=== PATIENT | male | born 1945 | race Caucasian/White ===

== ENCOUNTER → 2022-01-20 10:52 | Outpatient (CLI) | payer OTHER, SELFPAY ==
--- NOTE | ~2022-01-20 | MR_ITS ---
EXAMINATION: MR shoulder LT wo con DATE: 01/20/2022 11:33 INDICATION: Left shoulder pain post fall 2 months prior. TECHNIQUE: Magnetic resonance imaging (MRI) of the left shoulder was performed without intravenous co ntrast. Sequences included axial PD-weighted FS FSE, coronal oblique PD-weighted FS FSE, coronal obli que T2-weighted FS FSE, sagittal PD-weighted FS FSE, and sagittal T1-weighted SE. COMPARISON: None. FINDINGS: Coracoacromial arch: The acromion undersurface is curved in morphology (type II). Small subacromial spur at the acromial i nsertion of the normal coracoacromial ligament. Mild acromioclavicular osteoarthritis. Ununited fract ure of the distal left clavicle which extends between the medial and lateral sides of the insertion o f the coracoclavicular ligament. The fracture margins appear smooth with developing low signal intens ity cortication and without significant marrow edema abutting the fracture suggesting this fracture i s chronic and progressing towards if not already nonunited. Rotator cuff: The infraspinatus, subscapularis and teres minor tendons are normal. Supraspinatus tendon appears att enuated suggesting a partial thickness tear however no discernible fluid signal intensity tear defect or retracted tear margin is identified. There is moderate to severe atrophy of the supraspinatus mus karena belly further suspicious for chronic tear. Biceps tendon, glenoid labrum and glenohumeral cartilage: Complete avulsion of the intra-articular biceps tendon from its glenoid anchor. A posterior margin is retracted below the level of the intertubercular groove. Diffuse tearing of the glenoid labrum relat ively sparing a small portion of the inferior labrum. Partial-thickness cartilage loss with smooth ch ondral surface at the central and cephalad thirds of the glenoid. There is partial thickness cartilag e loss with smooth chondral surface along the inferomedial and anterosuperior aspect of the humeral h ead. Fluid: Physiologic amount of fluid in the glenohumeral joint and biceps tendon sheath. No loose osteochondr al bodies. No abnormal fluid signal in the subacromial/subdeltoid bursa to suggest bursitis. Bones: Normal bone marrow signal throughout. Centimeters the lateral clavicle there are no fractures. No pat hologic marrow replacing process. IMPRESSION: 1. 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 2. Mild glenohumeral osteoarthritis with diffuse labral tear. 3. Complete avulsion and distal retraction of the long head biceps tendon from its glenoid anchor. 4. Attenuation of the supraspinatus tendon and moderate to severe atrophy of the muscle belly suggest ing partial thickness tear, potentially intrasubstance, without a clearly defined tear defect or retr acted tear margin Reviewed, dictated and finalized at location B. IMPRESSION: 1. 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 2. Mild glenohumeral osteoarthritis with diffuse labral tear. 3. Complete avulsion and distal retraction of the long head biceps tendon from its glenoid anchor. 4. Attenuation of the supraspinatus tendon and moderate to severe atrophy of th e muscle belly suggesting partial thickness tear, potentially intrasubstance, w ithout a clearly defined tear defect or retracted tear margin
== END ==
PROVIDERS: PCP Physician Assistant; Visit Provider Physician Assistant
DX: M19.012 Primary osteoarthritis, left shoulder (principal)
CPT/HCPCS: 73221